=== PATIENT | male | born 1980 | race Caucasian/White ===

== ENCOUNTER → 2018-05-15 | Day surgery (SDC) | payer BC ==
[~2018-05-15] VITALS: Ht 180.3 cm; Wt 74.8 kg
[~2018-05-15] MED LIST: AMPICILLIN SOD 1 GM VL ONE; BUPIVACAINE W/ EPINEPH 0.25% INJ 50ML MDV ONE; LIDOCAINE W/ EPINEPHRINE 1% 20ML VIAL ONE; MIDAZOLAM HCL 1MG/1ML-2 ML VIAL ONE; NEOMYCIN-BACITRACIN-POLYM 15GM TOP OINT TOP ONE; ONDANSETRON HCL 4 MG/2 ML VIAL IV ONE; PROPOFOL 10 MG/ML 20 ML IV ONE; ePHEDrine SULFATE 50 MG/ML AMP IV PRN; fentaNYL CITRATE 100 MCG/2 ML VL IV PRN; fentaNYL CITRATE 100 MCG/2 ML VL ONE; hydrALAZINE HCL 20 MG/ML VL IV PRN
[2018-05-15 10:38] VITALS: BP 124/76
== END | disposition home or self-care (01) ==
LOC: SUR 06:39
PROVIDERS: ATTEND Urology
DX: Z30.2 Encounter for sterilization (principal)
CPT/HCPCS: 55250; J0290; J2250; J2704; J3010; J7030

== ENCOUNTER → 2018-08-01 | Outpatient (CLI) | payer BC | END | disposition home or self-care (01) | LOC: LAB 08:33 | PROVIDERS: ATTEND Urology | DX: Z30.09 Encounter for other general counseling and advice on contraception (principal) | CPT/HCPCS: 89321 ==